=== PATIENT | male | born 1965 | race African-American/Black ===

== ENCOUNTER 2018-03-17 23:49 | Emergency (ER) | payer MEDICARE, OTHER ==
[2018-03-18 03:28] LABS: #Eosinphils 0.1 thou/uL (0.0-0.7); #Monocytes 0.3 thou/uL (0.11-0.59); #Neutrophils 2.3 thou/uL (1.40-6.50); %Basophils 0.2 % (0.0-1.0); %Eosinophils 2.4 % (0.0-10.0); %Lymphocytes 42.6 % (21.0-51.0); %Monocytes 5.8 % (0.0-10.0); Hemoglobin 13.2 g/dL (14.0-18.0); Mean Corpuscular Hemoglobin 30.4 pg (27.0-31.0); Mean Corpuscular Volume 84.2 fL (78.0-98.0); Mean Platelet Volume 6.7 fL (7.4-10.4); Platelet Count 176 thou/uL (130-400); Red Blood Cell (RBC) Count 4.33 mill/uL (4.70-6.10); White Blood Cell (WBC) Count 4.7 thou/uL (4.8-10.8)
[2018-03-18 03:48] LABS: Anion Gap 14 mmol/L (10-20); BUN (Urea Nitrogen) 17 mg/dL (8.4-25.7); Calc. Creatinine Clearance 0 mL/min (70-130); Calcium 9.7 mg/dL (7.8-10.44); Carbon Dioxide 21 mmol/L (22-29); Chloride 108 mmol/L (98-107); Estimated GFR-MDRD 63; Glucose 96 mg/dL (70-105); Potassium 4.2 mmol/L (3.5-5.1); Sodium 139 mmol/L (136-145)
[2018-03-18 03:55] LABS: CKMB 1.4 ng/mL (0-6.6); Troponin I Less than 0.010 ng/mL (< 0.028)
--- NOTE | 2018-03-18 08:46 | RAD ---
PORTABLE CHEST 1 VIEW: Date: 03/18/18 Time: 0236 hours HISTORY: Bradycardia. FINDINGS: Comparison made with exam of 09/01/14. The heart size is normal. The lungs are expanded without lobar consolidation, pneumothoraces, rosal[place] p ulmonary edema, or pleural effusions. IMPRESSION: No radiographic evidence of acute cardiopulmonary process. POS: OFF
--- NOTE | 2018-03-19 13:07 | EKG ---
Test Reason : Blood Pressure : / mmHG Vent. Rate : 053 BPM Atrial Rate : 053 BPM P-R Int : 178 ms QRS Dur : 094 ms QT Int : 428 ms P-R-T Axes : 053 048 050 degrees QTc Int : 401 ms Sinus bradycardia Otherwise normal ECG Confirmed by NOEL LESTER DO ([id number]), associate entertainment editor ESAU DEGROOT ([id number] on 03/19/2018 1:07:18 PM Referred By: Confirmed By:NOEL LESTER DO
== END 2018-03-18 05:09 | disposition home or self-care (01) ==
LOC: ERS 23:49
DX: R00.1 Bradycardia, unspecified (principal); E78.5 Hyperlipidemia, unspecified; I10 Essential (primary) hypertension; E11.9 Type 2 diabetes mellitus without complications; Z79.899 Other long term (current) drug therapy; Z79.84 Long term (current) use of oral hypoglycemic drugs
CPT/HCPCS: 71045; 80048; 82553; 84443; 84484; 85025; 93005